=== PATIENT | male | born 1980 | race African-American/Black ===

== ENCOUNTER 2018-09-30 17:02 | Emergency (ER) | payer SELFPAY ==
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
[2018-09-30 17:47] LABS: BASOPHILS # (AUTO) 0.1 10^3/uL (0.0-0.1); EOSINOPHILS % (AUTO) 0.2 %; HGB - HEMOGLOBIN 15.5 g/dL (14.0-18.0); LYMPHOCYTES # (AUTO) 1.3 10^3/uL (1.5-3.5); LYMPHOCYTES % (AUTO) 22.6 %; MEAN CORPUSCULAR HEMOGLOBIN 33.3 pg (27.0-31.0); MEAN CORPUSCULAR HGB CONC 33.9 g/dL (32.0-36.0); MEAN PLATELET VOLUME 6.3 fL (7.4-11.4); MONOCYTES # (AUTO) 0.3 10^3/uL (0.0-1.0); MONOCYTES % (AUTO) 4.5 %; NEUTROPHILS # (AUTO) 4.1 10^3/uL (1.5-6.6); NEUTROPHILS % (AUTO) 71.7 %; PLT - PLATELET COUNT 282 10^3/uL (130-450); RED BLOOD COUNT 4.66 10^6/uL (4.70-6.10); RED CELL DISTRIBUTION WIDTH 13.4 % (12.0-15.0); WHITE BLOOD COUNT 5.7 x10^3/uL (4.8-10.8)
[2018-09-30 17:59] LABS: MUDS CUTOFF CONCENTRATIONS CUTOFF CONC BELOW:
[2018-09-30 17:59] LABS: ACETAMINOPHEN < 10 ug/mL (10-30); ALBUMIN 4.6 g/dL (3.2-5.5); ALBUMIN/GLOBULIN RATIO 1.8 (1.0-2.2); ALKALINE PHOSPHATASE 86 IU/L (42-121); ALT ALANINE AMINOTRANSFERASE 27 IU/L (10-60); AST ASPARTATE AMINOTRANSFERASE 24 IU/L (10-42); BILIRUBIN,TOTAL 0.8 mg/dL (0.2-1.0); BUN - BLOOD UREA NITROGEN 9 mg/dL (6-20); CARBON DIOXIDE - CO2 30 mmol/L (21-32); CHLORIDE 104 mmol/L (101-111); CREATININE 0.8 mg/dL (0.6-1.2); GFR - MDRD 132 (>89); GLUCOSE 101 mg/dL (70-100); LIPASE 34 U/L (22-51); SALICYLATE < 6.0 mg/dL; SODIUM 141 mmol/L (135-145); TOTAL PROTEIN 7.2 g/dL (6.7-8.2)
[2018-09-30 18:13] LABS: AMPHETAMINE SCREEN,URINE NEGATIVE (NEGATIVE); BENZODIAZEPINES SCREEN, URINE NEGATIVE (NEGATIVE); COCAINE SCREEN URINE NEGATIVE (NEGATIVE); METHADONE SCREEN, URINE NEGATIVE (NEGATIVE); METHAMPHETAMINES SCREEN, URINE NEGATIVE (NEGATIVE); OPIATE SCREEN, URINE NEGATIVE (NEGATIVE); OXYCODONE SCREEN, URINE NEGATIVE (NEGATIVE); PROPOXYPHENE SCREEN, URINE NEGATIVE (NEGATIVE); TRICYCLIC ANTIDEPRESSANT,URINE NEGATIVE (NEGATIVE)
[2018-10-01 08:37] VITALS: BP 125/81
== END 2018-10-01 08:37 ==
LOC: ED 17:02
DX: R45.851 Suicidal ideations (principal); F32.9 Major depressive disorder, single episode, unspecified
CPT/HCPCS: 36415; 80053; 80306; 80307; 80320; 80329; 82375; 83690; 84443; 85025; 99284

== ENCOUNTER 2019-10-25 09:40 | Outpatient (CLI) | payer MEDICAID ==
[2019-10-26 12:05] LABS: HEPATITIS C ANTIBODY NON-REACTIVE (NON-REACTIVE)
[2019-10-26 14:38] LABS: HIV AG/AB 4TH GEN NON-REACTIVE (NON-REACTIVE)
== END 2019-10-25 23:59 | disposition home or self-care (01) ==
LOC: LAB.WCP 09:40
PROVIDERS: ATTEND Nurse Practitioner Family
DX: F19.10 Other psychoactive substance abuse, uncomplicated (principal)
CPT/HCPCS: 36415; 86803; 87389

== ENCOUNTER 2020-03-05 08:56 | Outpatient (CLI) | payer MEDICAID ==
--- NOTE | 2020-03-05 14:17 | Mammography Report ---
MALE BILATERAL DIGITAL DIAGNOSTIC MAMMOGRAM 3D/2D WITH CAD: 03/05/2020 CLINICAL: Palpable lumps in both breasts. Baseline exam. No prior exams were available for comparison. Current study was also evaluated with a Computer Aided Detection (CAD) system. There is an irregular area of fibroglandular tissue with an indistinct margin in the right breast jessica tral to the nipple in the retroareolar region. This correlates as palpated and to the area of report ed pain. There is an irregular area of fibroglandular tissue with an indistinct margin in the left breast cent ral to the nipple in the retroareolar region. This correlates as palpated and to the area of reporte d pain. Asymmetric tissue on the left is larger than the right. No other significant masses or calcifications are seen in either breast. IMPRESSION: INCOMPLETE: NEEDS ADDITIONAL IMAGING EVALUATION The irregular areas of fibroglandular tissue in the retroareolar breasts resembles gynecomastia and i s indeterminate. A targeted bilateral ultrasound is recommended and will immediately follow. Left si de is asymmetrically larger than the right. This exam was interpreted at Station ID: [id number]. NOTE: For mammograms, a report in lay terms will be sent to the patient. Approximately 15% of breast malignancies will not be visualized mammographically. In the management of a palpable breast mass, a negative mammogram must not discourage biopsy of a clinically suspicious lesion. Electronically Signed By: Aleksey Massey M.D. slc/:03/05/2020 11:27:54 ACR BI-RADS Category 0: Incomplete 3340F PARENCHYMAL PATTERN: (F) - The breast(s) demonstrate(s) diffuse fatty replacement. BI-RADS CATEGORY: (0) - 0 Ultrasound [id number] Immediate follow-up B
--- NOTE | 2020-03-05 16:59 | Ultrasound Report ---
LIMITED ULTRASOUND OF RIGHT BREAST: 03/05/2020 CLINICAL: Palpable lumps in both breasts. Comparison is made to exam dated: 03/05/2020 mammogram - [facility]. Color flow and real-time ultrasound of the right breast retroareolar were performed. Diaz scale imag es of the real-time examination were reviewed. There is a benign irregular area of fibroglandular tissue in the right breast central to the nipple i n the retroareolar region. This irregular area of fibroglandular tissue is heterogeneously echogenic . This correlates with mammography findings. No mass. IMPRESSION: BENIGN There is no sonographic evidence of malignancy. Palpable abnormality corresponds to benign gynecomastia in the right breast. Clinical follow-up is recommended. Exam findings and recommendation were conveyed to the patient by the Net Programmer. This exam was interpreted at Station ID: [id number]. Electronically Signed By: Aleksey Massey M.D. slc/:03/05/2020 11:29:06 Ultrasound BI-RADS: 2 Benign BI-RADS CATEGORY: (2) - 2 Unspecified - other recall n/a B
--- NOTE | 2020-03-05 17:00 | Ultrasound Report ---
LIMITED ULTRASOUND OF LEFT BREAST: 03/05/2020 CLINICAL: Palpable lumps in both breasts. Comparison is made to exams dated: 03/05/2020 ultrasound and 03/05/2020 mammogram - [facility]. Color flow and real-time ultrasound of the left breast retroareolar were performed. Diaz scale imag es of the real-time examination were reviewed. There is a benign irregular area of fibroglandular tissue in the left breast central to the nipple in the retroareolar region. This irregular area of fibroglandular tissue is heterogeneously echogenic. This correlates as palpated and with mammography findings. No mass. IMPRESSION: BENIGN There is no sonographic evidence of malignancy. Palpable abnormality corresponds to benign gynecomastia in the left breast. Clinical follow-up is recommended. Exam findings and recommendation were conveyed to the patient by the Camera Supervisor. This exam was interpreted at Station ID: [id number]. Electronically Signed By: Aleksey Massey M.D. slc/:03/05/2020 11:31:27 Ultrasound BI-RADS: 2 Benign BI-RADS CATEGORY: (2) - 2 Unspecified - other recall n/a B
== END 2020-03-05 08:57 | disposition home or self-care (01) ==
LOC: DI 08:56
PROVIDERS: ATTEND Nurse Practitioner Family
DX: N62 Hypertrophy of breast (principal)
CPT/HCPCS: 76642; 77066

== ENCOUNTER 2020-07-13 12:28 | Emergency (ER) | payer MEDICAID ==
[2020-07-13] MEDS ORDERED: BUFFERED LIDOCAINE 10 ML SYRINGE SUBQ STA (12:40)
--- NOTE | 2020-07-13 12:47 | ED Physician Documentation ---
History of Present Illness - Stated complaint Stated Complaint: RT FINGER INJ - Chief complaint Chief Complaint: General - History obtained from History obtained from: Patient - Additonal information Additional information: 40-year-old gentleman has had about a weeks worth of painful swelling of the distal right middle finger without known injury. No fevers. Review of Systems Constitutional: reports: Reviewed and negative Cardiac: reports: Reviewed and negative Respiratory: reports: Reviewed and negative PD PAST MEDICAL HISTORY - Past Medical History Past Medical History: Yes Cardiovascular: None Respiratory: None Neuro: None Endocrine/Autoimmune: None GI: None : None HEENT: None Psych: None Musculoskeletal: None Derm: None - Past Surgical History Past Surgical History: No - Present Medications Home Medications: Ambulatory Orders Medication Instructions Recorded Confirmed Cephalexin [Keflex] 500 mg PO Q6H #28 capsule 07/13/20 - Allergies Allergies/Adverse Reactions: Allergies Allergy/AdvReac Type Severity Reaction Status Date / Time No Known Drug Allergies Allergy Verified 07/13/20 12:34 - Social History Does the pt smoke?: No Smoking Status: Never smoker Does the pt drink ETOH?: Yes Does the pt have substance abuse?: No PD ED PE NORMAL - Vitals Vital signs reviewed: Yes - General General: Alert and oriented X 3, No acute distress - Extremities Extremities: Other (Has an almost circumferential paronychia worst on the radial side of the right middle finger with mild cellulitis) - Neuro Neuro: Alert and oriented X 3, Normal speech Results - Vitals Vitals: Vital Signs - 24 hr 07/13/20 12:31 Temperature 36.3 C L Heart Rate 72 Respiratory 16 Rate Blood Pressure 135/81 H O2 Saturation 99 Oxygen O2 Source Room air Procedures - Abscess I&D (location) R 3rd finger paroychia Preparation: Other (buffered lidocaine 1% digital block) Incision: Incised with scalpel, Purulent drainage, Culture obtained Other: Pt tolerated well, Dressing applied, Antibiotic prescribed Departure - Departure Disposition: 01 Home, Self Care Clinical Impression: Paronychia Condition: Good Record reviewed to determine appropriate education?: Yes Instructions: ED Fingernail Infec Prescriptions: Cephalexin [Keflex] 500 mg PO Q6H #28 capsule Comments: Warm soaks several times a day until all the swelling is gone. Return if the swelling recurs. Follow-up with your doctor as needed.
[2020-07-13 13:04] VITALS: BP 130/93
== END 2020-07-13 13:07 | disposition home or self-care (01) ==
LOC: ED 12:28
DX: L03.011 Cellulitis of right finger (principal)
CPT/HCPCS: 26010; 87070; 87077; 87181; 87205

== ENCOUNTER 2023-02-19 23:06 | Emergency (ER) | payer MEDICAID ==
[2023-02-20] MEDS ORDERED: IBUPROFEN 600 MG TABLET PO STA (00:08)
--- NOTE | 2023-02-20 00:30 | XRAY Report ---
PROCEDURE: Ankle 3 View RT INDICATIONS: FELL/PAIN/TENDERNESS/SWELLING R ANKLE TECHNIQUE: 3 views of the ankle were acquired. COMPARISON: None. FINDINGS: Bones: No fractures or dislocations. Ankle mortise is normally aligned. No suspicious bony lesions . Soft tissues: No tibiotalar joint effusion. Achilles tendon appears normal. IMPRESSION: 1. No fracture or dislocation. Reviewed by: Rustam Chan MD on 02/20/2023 12:29 AM PDT Approved by: Rustam Chan MD on 02/20/2023 12:29 AM PDT Station ID: [id number]
--- NOTE | 2023-02-20 01:14 | ED Physician Documentation ---
History of Present Illness - Stated complaint Stated Complaint: ANKLE INJ - Chief complaint Chief Complaint: Ext Problem - History obtained from History obtained from: Patient - Additonal information Additional information: 43-year-old man with history of ankle sprain presents status post fall from the roof onto a stair injuring his right foot around 1 PM. Patient had sudden onset pain and was unable to weight-bear immediately. Endorses swelling and pain to the lateral right foot and ankle Review of Systems Musculoskeletal: reports: Extremity pain, Joint pain PD PAST MEDICAL HISTORY - Past Medical History Past Medical History: No Cardiovascular: None Respiratory: None Neuro: None Endocrine/Autoimmune: None GI: None : None HEENT: None Psych: None Musculoskeletal: None Derm: None - Past Surgical History Past Surgical History: Yes General: Other Ortho: Other - Present Medications Home Medications: Ambulatory Orders Medication Instructions Recorded Confirmed No Known Home Medications 02/19/23 02/19/23 - Allergies Allergies/Adverse Reactions: Allergies Allergy/AdvReac Type Severity Reaction Status Date / Time No Known Drug Allergies Allergy Verified 02/19/23 23:17 - Social History Does the pt smoke?: No Smoking Status: Never smoker Does the pt drink ETOH?: Yes Does the pt have substance abuse?: No - Immunizations Immunizations are current?: Yes - POLST Patient has POLST: No PD ED PE NORMAL - Vitals Vital signs reviewed: Yes - General General: Alert and oriented X 3, No acute distress, Well developed/nourished - HEENT HEENT: Atraumatic, PERRL, EOMI - Derm Derm: Normal color, Warm and dry - Extremities Extremities: Other (decreased ROM R ankle. 2+ DP pulse. normal sensation. nontender to medial or lateral malleolus or base of 5th metatarsal) Results - Vitals Vitals: Vital Signs - 24 hr 02/19/23 02/20/23 23:11 00:15 Temperature 37.1 C Heart Rate 91 Respiratory 17 17 Rate Blood Pressure 139/80 H O2 Saturation 98 Oxygen O2 Source Room air PD Medical Decision Making - ED course ED course: 43-year-old male presents with right ankle sprain status post fall. ankle xray noncontributory per my interpretation and that of outside radiologist. motrin provided with relief. Symptomatic care discussed. plan to f/u with pcp. ede wrap and crutches provided. Departure - Departure Disposition: 01 Home, Self Care Clinical Impression: Ankle sprain Condition: Stable Instructions: ED Sprain Ankle Comments: You were seen in the emergency department for an ankle sprain. Please use ede wrap and crutches for the next couple weeks and return to the emergency depa rtment for new or worsening symptoms. Follow-up with your primary care provider.
[2023-02-20 01:26] VITALS: BP 127/77
== END 2023-02-20 01:25 | disposition home or self-care (01) ==
LOC: ED 23:06
DX: S93.401A Sprain of unspecified ligament of right ankle, initial encounter (principal); W13.2XXA Fall from, out of or through roof, initial encounter
CPT/HCPCS: 73610; 99283; A9270

== ENCOUNTER 2023-03-09 08:00 | Outpatient (CLI) | payer MEDICAID ==
--- NOTE | 2023-03-10 09:47 | XRAY Report ---
PROCEDURE: Ankle 3 View RT INDICATIONS: RIGHT ANKLE PAIN/INJURY TECHNIQUE: 3 views of the ankle were acquired. COMPARISON: None. FINDINGS: Bones: No fractures or dislocations. Ankle mortise is normally aligned. No suspicious bony lesions . Soft tissues: No tibiotalar joint effusion. Achilles tendon appears normal. IMPRESSION: No acute bony abnormality. Reviewed by: Juliana Scott MD on 03/10/2023 9:45 AM PDT Approved by: Juliana Scott MD on 03/10/2023 9:45 AM PDT Station ID: [id number]
== END 2023-03-09 23:59 | disposition home or self-care (01) ==
LOC: DI.WOS 08:00
PROVIDERS: ATTEND Physician Assistant Surgical
DX: S93.491D Sprain of other ligament of right ankle, subsequent encounter (principal)